=== PATIENT | female | born 1950 | race Caucasian/White ===

== ENCOUNTER 2017-05-24 06:51 | Inpatient (IN) | payer OTHER ==
[2017-05-24] MEDS: HYDROcodone/APAP 5/325MG 1 TAB TABLET PO (07:29)
[2017-05-24] MEDS: DIPHTH,PERTUSS(ACELL),TET TOX 0.5 ML DISP.SYRIN. VAX IM (07:30)
[2017-05-24] MEDS: LIDOCAINE WITH 8.4% SOD BICARB 3 ML DISP.SYRIN. INJ (07:45)
[2017-05-24] MEDS: BUPIVACAINE 0.5% 50 ML VIAL. IJ (07:45)
[2017-05-24] MEDS ORDERED: ONDANSETRON PF 4 MG/2 ML VIAL. IV (08:30)
[2017-05-24 08:36] LABS: ADD MAN DIFF? NO
[2017-05-24 08:43] LABS: BASO # 0.1 x10^3/uL (0.0-0.2); BASO % 1 % (0-3); EOS # 0.1 x10^3/uL (0.0-0.7); EOS % 1 % (0-3); HEMATOCRIT 32.9 % (36.0-47.0); HEMOGLOBIN 10.5 g/dL (12.0-15.5); LYMPH # 1.1 x10^3/uL (1.0-4.8); LYMPH % 21 % (24-48); MEAN CORPUSCULAR HEMOGLOBIN 23 pg (25-35); MEAN CORPUSCULAR HGB CONC 32 g/dL (31-37); MEAN CORPUSCULAR VOLUME 73 fL (79-100); MONO # 0.3 x10^3/uL (0.0-1.1); MONO % 5 % (0-9); NEUT # 3.9 x10^3uL (1.8-7.7); NEUT % 72 % (31-73); PLATELET COUNT 243 x10^3/uL (140-400); RED BLOOD COUNT 4.53 x10^6/uL (3.50-5.40); RED CELL DISTRIBUTION WIDTH 17.5 % (11.5-14.5); WHITE BLOOD COUNT 5.5 x10^3/uL (4.0-11.0)
[2017-05-24 08:50] LABS: ANION GAP 10 (6-14); BLOOD UREA NITROGEN 11 mg/dL (7-20); BUN/CREATININE RATIO 14 (6-20); CALCIUM 9.3 mg/dL (8.5-10.1); CARBON DIOXIDE 25 mmol/L (21-32); CHLORIDE 105 mmol/L (98-107); CREATININE 0.8 mg/dL (0.6-1.0); GFR 72.2; GLUCOSE 106 mg/dL (70-99); SODIUM 140 mmol/L (136-145)
[2017-05-24 08:55] LABS: ALBUMIN 3.5 g/dL (3.4-5.0); ALBUMIN/GLOBULIN RATIO 0.9 (1.0-1.7); ALK PHOS 143 U/L (46-116); ALT (SGPT) 21 U/L (14-59); AST (SGOT) 22 U/L (15-37); PROTHROMBIN TIME PATIENT 12.6 SEC (11.7-14.0); TOTAL BILIRUBIN 0.3 mg/dL (0.2-1.0); TOTAL PROTEIN 7.6 g/dL (6.4-8.2)
[2017-05-24 08:56] LABS: PARTIAL THROMBOPLASTIN TIME 29 SEC (24-38)
[2017-05-24] MEDS: IV NORMAL SALINE 1000ML BAG 1,000 ML IV ×2 (09:11→20:36)
[2017-05-24] MEDS ORDERED: METOPROLOL SUCC 24HR ER 25 MG TAB.ER.24H. PO (12:30)
[2017-05-24] MEDS: IRON POLYSACCHARIDE COMPLEX 150 MG CAPSULE PO (15:10)
[2017-05-24] MEDS: fentaNYL PF VIAL 100 MCG/2 ML VIAL IV ×2 (15:11→15:59)
[2017-05-24] MEDS ORDERED: ACETAMINOPHEN/CODEINE 300/30MG TABLET. PO (17:30)
[2017-05-24] MEDS ORDERED: MORPHINE SULFATE 2 MG/ML DISP.SYRIN. IV (17:30)
[2017-05-24] MEDS: HYDROcodone/APAP 10/325 1 TAB TABLET PO (17:39)
[2017-05-24 19:28] LABS: MRSA BY PCR Negative (Negative)
[2017-05-24] MEDS: MORPHINE SULFATE 4 MG/ML DISP.SYRIN. IV (20:37)
[2017-05-25] MEDS: IV NORMAL SALINE 1000ML BAG 1,000 ML IV (06:08)
[2017-05-25] MEDS: MORPHINE SULFATE 4 MG/ML DISP.SYRIN. IV (06:15)
[2017-05-25 06:16] LABS: ADD MAN DIFF? NO
[2017-05-25 06:32] LABS: BASO % 1 % (0-3); EOS # 0.1 x10^3/uL (0.0-0.7); EOS % 1 % (0-3); HEMATOCRIT 29.3 % (36.0-47.0); HEMOGLOBIN 9.4 g/dL (12.0-15.5); LYMPH # 1.2 x10^3/uL (1.0-4.8); LYMPH % 20 % (24-48); MEAN CORPUSCULAR HEMOGLOBIN 23 pg (25-35); MEAN CORPUSCULAR HGB CONC 32 g/dL (31-37); MEAN CORPUSCULAR VOLUME 73 fL (79-100); MONO # 0.4 x10^3/uL (0.0-1.1); MONO % 7 % (0-9); NEUT # 4.3 x10^3uL (1.8-7.7); NEUT % 71 % (31-73); PLATELET COUNT 211 x10^3/uL (140-400); RED BLOOD COUNT 4.03 x10^6/uL (3.50-5.40)
[2017-05-25 06:46] LABS: ALBUMIN 2.9 g/dL (3.4-5.0); ALBUMIN/GLOBULIN RATIO 0.8 (1.0-1.7); ALK PHOS 128 U/L (46-116); ALT (SGPT) 18 U/L (14-59); ANION GAP 9 (6-14); AST (SGOT) 17 U/L (15-37); BLOOD UREA NITROGEN 7 mg/dL (7-20); BUN/CREATININE RATIO 12 (6-20); CALCIUM 8.8 mg/dL (8.5-10.1); CARBON DIOXIDE 24 mmol/L (21-32); CHLORIDE 104 mmol/L (98-107); CREATININE 0.6 mg/dL (0.6-1.0); GFR 100.6; GLUCOSE 106 mg/dL (70-99); POTASSIUM 3.9 mmol/L (3.5-5.1); SODIUM 137 mmol/L (136-145); TOTAL BILIRUBIN 0.5 mg/dL (0.2-1.0); TOTAL PROTEIN 6.5 g/dL (6.4-8.2)
[2017-05-25] MEDS: HYDROcodone/APAP 10/325 1 TAB TABLET PO (10:41)
[2017-05-25] MEDS: IRON POLYSACCHARIDE COMPLEX 150 MG CAPSULE PO (10:41)
== END 2017-05-25 15:45 | disposition home or self-care (01) | DRG 83 ==
LOC: ER 06:51 → 1 WEST ICU 08:00
DX: S06.5X9A Traumatic subdural hemorrhage with loss of consciousness of unspecified duration, initial encounter (principal); S52.502A Unspecified fracture of the lower end of left radius, initial encounter for closed fracture; D50.9 Iron deficiency anemia, unspecified; I10 Essential (primary) hypertension; S00.81XA Abrasion of other part of head, initial encounter; Y93.01 Activity, walking, marching and hiking; W00.0XXA Fall on same level due to ice and snow, initial encounter; Y92.481 Parking lot as the place of occurrence of the external cause; Z86.79 Personal history of other diseases of the circulatory system; Y99.8 Other external cause status
CPT/HCPCS: 25605; 36415; 70450; 72125; 73100; 73110; 80053; 85025; 85610; 85730; 87641; 90471; 90715; 92610-GN; 93005; 93306; 93880; 99285; 99285-25; J2270; J3010; J3490; J7030

== ENCOUNTER → 2017-06-01 | Outpatient (CLI) | payer OTHER | END | disposition home or self-care (01) | LOC: CT 08:03 | DX: I62.00 Nontraumatic subdural hemorrhage, unspecified (principal) | CPT/HCPCS: 70450 ==